=== PATIENT | female | born 1985 | race African-American/Black ===

== ENCOUNTER 2020-09-12 11:27 | Inpatient (IN) | payer OTHER ==
[~2020-09-12] VITALS: Ht 167.6 cm; Wt 82.1 kg
--- NOTE | 2020-09-12 11:50 | PHYS DOC ---
Past Medical History Past Surgical History: (X4) General Adult HPI: HPI: Patient is a 35-year-old female presenting via EMS for pelvic fracture. She was seen 48 hours ago at outside facility by myself at [facility]. She was riding a horse and got bucked off of it prompting her to come into the ER for evaluation. Comprehensive ER work-up was concerning for an acute nondisplaced right intra-articular distal radius fracture which was splinted in addition to stable right superior and inferior pubic rami fractures and a nondisplaced frac ture of the right sacral ala. [facility] orthopedic group consulted and case reviewed, she was a nonsurgical candidate. Nonetheless, orthopedic surgeon and I questioned patient's ability to be discharged home given the fact that she cannot operate crutches with splinted right arm and that she has several young children. I recommended hospital transfer to [facility] for pain control and physical therapy but patient deferred. She requested trial of discharging home with pain medication. She was sent home with short-term dose of Percocet 5 that she reports helps her pain when at rest but she has been unable to transfer even with assistance due to excessive uncontrolled pain. Patient's inability to care for herself concerned her and family and so she called EMS for transport to our facility. She is otherwise healthy, no known medical diagnoses, no consistent medications on a daily basis. She denies any falls or further trauma while at home, no changes in motor or sensory or neurologic function, no bladder or bowel incontinence Review of Systems: Review of Systems: Fourteen body systems of review of systems have been reviewed. See HPI for pertinent positives and negative responses, other acevedo all other systems are negative, non-pertinent or non-contributory Heart Score: C/O Chest Pain: No Risk Factors: Risk Factors: DM, Current or recent (<one month) smoker, HTN, HLP, family history of CAD, obesity. Risk Scores: Score 0 - 3: 2.5% MACE over next 6 weeks - Discharge Home Score 4 - 6: 20.3% MACE over next 6 weeks - Admit for Clinical Observation Score 7 - 10: 72.7% MACE over next 6 weeks - Early Invasive Strategies Physical Exam: PE: Constitutional: Well developed, well nourished, age appropriate in appearance and in no acute distress when not moving HENT: Normocephalic, atraumatic, bilateral external ears normal, oropharynx moist, no oral exudates, nose normal. Eyes: PERRLA, EOMI, conjunctiva normal, no discharge. Neck: Normal range of motion, no tenderness, supple, no stridor. Cardiovascular: Heart rate regular, sinus rhythm, no murmurs rubs or gallops Lungs & Thorax: Bilateral breath sounds clear to auscultation Abdomen: Bowel sounds normal, soft, no tenderness, no masses, no pulsatile masses. Nonsurgical abdomen, no peritoneal signs Skin: Warm, dry, no erythema, no rash. Back: No tenderness, no CVA tenderness. Extremities: Tenderness present to right pubic ramus at site of known stable fracture, no cyanosis, no clubbing, ROM intact, no edema. Able to move all x4 extremities on command, cap refill less than 3 seconds in all distal digits Neurologic: Alert and oriented X 3, no saddle anesthesia, normal motor & sensory function to all x4 extremities, no focal deficits noted. Psychologic: Anxious affect and mood EKG: EKG: [] Radiology/Procedures: Radiology/Procedures: [] Course & Med Decision Making: Course & Med Decision Making ABCs unremarkable. HPI, physical examination and review of outside [facility] ER visit reviewed, all nonconcerning for any emergent and/or surgical issues. With that said, patient unable to safely ambulate and care for self at home. Does not have regular care at home to assist through personal deficits. Unsafe to disposition home; at minimum plan admission for home safety evaluation, social and physical therapy evaluations I contacted hospitalist and discussed case, they accepted patient for admission. I updated patient on proposed plan for hospital admission and she was amenable. All questions and concerns addressed prior to hospital admission Dragon Disclaimer: Dragon Disclaimer: This electronic medical record was generated, in whole or in part, using a voice recognition dictation system. Departure Departure Impression: Primary Impression: Closed fracture of right superior pubic ramus Additional Impressions: Closed fracture of right inferior pubic ramus Closed fracture of right distal radius Nondisplaced zone I fracture of sacrum Disposition: 09 ADMITTED INPATIENT Admitting Physician: TARI (dr [email or web address]) Referrals: VALARIE TERAN MD (PCP) AVERY FERNANDEZ DO Sep 12, 2020 11:50
--- NOTE | 2020-09-12 11:51 | PDOC1 ---
History and Physical Date of Admission Date of Admission DATE: 09/12/20 TIME: 11:50 Identification/Chief Complaint Chief Complaint Hip pain Source Source: Chart review, Patient History of Present Illness History of Present Illness Patient is a 35-year-old female with past medical history recent pelvic fracture, who presents to the ER with complaint of continued pain and near syncopal event. She was seen at [facility] ER 2 days ago for initial fall from a horse with right hip injury. Comprehensive ER work-up at that time positive for an acute nondisplaced right intra-articular distal radius fracture, right superior and inferior pubic rami fractures, and a nondisplaced fracture of the right sacral ala. She was initially recommended admission at that time for pain management and physical therapy, however patient refused and opted instead to discharge home with family care. She states that earlier this morning she stood up and became lightheaded and had a near syncopal event. Patient states she did not lose consciousness, fall, or obtain any new injuries. She is concerned about her ability to care for herself at home. Will admit patient for further medical management. Past Medical History Past Medical History Superior and inferior pubic rami fractures right, nondisplaced fracture right sacral ala Past Surgical History Past Surgical History section x4, tubal ligation, tonsillectomy, hernia repair Family History Family History Denies significant family history Social History Smoke: No ALCOHOL: none Drugs: None Allergies Allergies: Coded Allergies: No Known Drug Allergies (Unverified , 09/12/20) ROS Review of System GENERAL: No history of weight change, weakness or fevers. SKIN: No bruising, hair changes or rashes. EYES: No blurred, double or loss of vision. NOSE AND THROAT: No history of nosebleeds, hoarseness or sore throat. HEART: Near syncope. Denies chest pain, denies palpitations. LUNGS: Denies cough, hemoptysis, wheezing or shortness of breath. GASTROINTESTINAL: Denies nausea, vomiting, abdominal pain. GENITOURINARY: Denies dysuria, frequency, urgency, hematuria. NEUROLOGIC: Denies history of numbness, tingling, tremor or weakness. PSYCHIATRIC: Denies anxiety, denies depression. ENDOCRINE: No history of heat or cold intolerance, polyuria or polydipsia. EXTREMITIES: Right hip pain, with associated right hip weakness and pain with walking. Physical Exam Physical Exam General: Alert, Oriented X3, Cooperative, mild distress HEENT: PERRLA, EOMI Lungs: Clear to auscultation, Normal air movement Heart: RRR, no murmurs Cardiovascular: S1, S2 Abdomen: Normal bowel sounds, Soft, No tenderness Extremities: Right upper extremity with cast in place, clean/dry/intact. No clubbing, No cyanosis Skin: No rashes, No significant lesion Neuro: Normal speech, Normal tone, Sensation intact Psych/Mental Status: Mental status NL, Mood NL Vitals Vitals Vital Signs Date Time Temp Pulse Resp B/P (MAP) Pulse Ox O2 Delivery O2 Flow Rate FiO2 09/12/20 11:34 98.4 68 16 98 Room Air 98.4 Images Images Radiology/Procedures XR HAND_LEFT 3 VIEWS History: Reason: LEFT THUMB PAIN, FOOSH / Spl. Instructions: / History: Technique: 3 views left hand Comparison: None. Findings: No dislocation. No acute fracture. Shortened fourth and fifth metacarpals. Impression: 1. No acute osseous abnormality. 2. Shortened fourth and fifth metacarpals. Differential considerations include metabolic and congenital etiologies. Electronically signed by: Bill Sarabia DO (09/10/2020 3:12 PM) [facility]ITAL[facility] IncMALINDA ////////////////// XR RT WRIST 3VIEWS History: Reason: RT SNUFFBOX PAIN / Spl. Instructions: / History: Technique: 3 views right wrist Comparison: None. Findings: Acute nondisplaced intra-articular distal radial fracture. No dislocation. There is adjacent soft tissue swelling. Impression: 1. Acute nondisplaced right intra-articular distal radius fracture. Electronically signed by: Bill Sarabia DO (09/10/2020 3:14 PM) [facility] ////////////// XR BILATERAL HIP (WITH OR WITHOUT PELVIS) 2 VIEWS_RIGHT History: Reason: FALL OFF HORSE, RIGHT HIP PAIN / Spl. Instructions: / History: Technique: AP view of the pelvis and additional views of the right hip. Comparison: None. Findings: Acute mildly displaced superior and inferior pubic rami fractures. No dislocation of the hips. Possible nondisplaced right sacral alar fracture although not well characterized on the current examination. Impression: 1. Acute mildly displaced right superior and inferior pubic ramus fractures. 2. Possible nondisplaced right sacral alar fracture. Electronically signed by: Bill Sarabia DO (09/10/2020 3:18 PM) [facility] ///////////// Single view chest dated 09/10/2020 3:58 PM: COMPARISON: None Clinical Indication: Pain after fall. Findings: Single upright portable exam of the chest was performed. Heart size and mediastinal contours are within normal limits. Lungs are clear. No consolidation or pleural effusion. No pneumothorax. IMPRESSION: No acute radiographic abnormality. Electronically signed by: Nathan Fernandez MD (09/10/2020 3:59 PM) [id number] /////////////// CT abdomen pelvis with contrast. HISTORY: Right pelvic fractures. CT abdomen pelvis was done using 74 mL of Omnipaque 300 contrast. There is mild atelectasis in the lung bases without other infiltrates. Liver is normal in ap pearance. There is no calcified gallstone. Spleen is unremarkable. Pancreas and adrenal glands are unremarkable. There is no mass or hydronephrosis in the kidneys. There is scarring and decreased size of the right kidney compared to the left side. There is no small bowel obstruction. Appendix is normal. Ovaries are unremarkable. There is central mass or endometrial thickening in the uterus. Bladder is almost empty but otherwise unremarkable. There is no significant pelvic hematoma or free fluid in the pelvis. There is buckling of the sacral ala on the right side consistent with a nondisplaced sacral fracture. There are superior and inferior right pubic rami fractures. IMPRESSION: 1. Endometrial thickening versus central mass in the uterus. 2. Superior and inferior pubic rami fractures right. 3. Nondisplaced fracture right sacral ala. 4. No acute intra-abdominal injury noted. 5. Scarring and decreased size of the right kidney compared to the left side. VTE Prophylaxis Ordered VTE Prophylaxis Devices: Yes VTE Pharmacological Prophylaxi: No Assessment/Plan Assessment/Plan Intractable hip pain Superior and inferior pubic rami fractures right Nondisplaced fracture right sacral ala Physical debility Plan: Will Provide pain management and muscle relaxers as needed PT/OT Resume home medications FEN - Regular diet PPX - SCDs FULL CODE Dispo - inpatient at least 2 midnights for above with plan for skilled rehab Justifications for Admission Other Justification EFREN FOLEY MD Sep 12, 2020 11:51
[2020-09-12] MEDS ORDERED: fentaNYL PF VIAL 100 MCG/2 ML VIAL IVP ONE (12:00)
[2020-09-12] MEDS ORDERED: MAG HYDROX/ALUMINUM HYD/SIMETH 30 ML ORAL.SUSP PO PRN (12:15)
[2020-09-12] MEDS ORDERED: ONDANSETRON PF 4 MG/2 ML VIAL. IVP PRN (12:15)
[2020-09-12] MEDS ORDERED: MAGNESIUM HYDROXIDE 2,400 MG/30 ML ORAL.SUSP. PO PRN (12:15)
[2020-09-12] MEDS ORDERED: ACETAMINOPHEN 325 MG TABLET. PO PRN (12:15)
[2020-09-12] MEDS ORDERED: HYDROcodone/APAP 5/325MG 1 TAB TABLET PO PRN ×2 (12:15)
[2020-09-12] MEDS ORDERED: IBUPROFEN 400 MG TABLET. PO PRN (12:15)
[2020-09-12] MEDS ORDERED: CALCIUM CARBONATE 500 MG TAB.CHEW PO PRN (12:15)
[2020-09-12] MEDS ORDERED: oxyCODONE/APAP 5/325 1 TAB TABLET PO PRN (12:15)
[2020-09-12] MEDS ORDERED: ZOLPIDEM 5 MG TABLET. PO PRN (12:15)
[2020-09-12 12:45] VITALS: BP 138/65
[2020-09-12 13:24] VITALS: BP 138/65
[2020-09-12] MEDS: DOCUSATE SODIUM 100 MG CAPSULE. PO SCH ×2 (14:41→20:31)
[2020-09-12] MEDS: tiZANidine 4 MG TABLET. PO PRN ×2 (14:41→22:50)
[2020-09-12 14:57] LABS: BILIRUBIN,URINE NEGATIVE (NEG); CLARITY,URINE CLEAR; COLOR,URINE YELLOW; NITRITE,URINE POSITIVE (NEG); PROTEIN,URINE NEGATIVE (NEG-TRACE); UROBILINOGEN,URINE 0.2 mg/dL (0.2 mg/dL)
[2020-09-12 15:00] VITALS: BP 136/86
[2020-09-12 15:04] LABS: HYALINE CASTS, URINE FEW /HPF
[2020-09-12 15:05] LABS: BACTERIA,URINE MANY /HPF (0-FEW); RBC,URINE 0 /HPF (0-2); WBC,URINE >40 /HPF (0-4)
[2020-09-12] MEDS ORDERED: CHOL5000 PO (17:10)
[2020-09-12 19:00] VITALS: BP 134/89
[2020-09-12] MEDS: oxyCODONE/APAP 5/325 1 TAB TABLET PO PRN (19:31)
[2020-09-12 23:00] VITALS: BP 127/79
[2020-09-13] VITALS (7 sets, daily range): BP systolic 114–142; BP diastolic 60–84
[2020-09-13] MEDS: oxyCODONE/APAP 5/325 1 TAB TABLET PO PRN ×2 (02:01→06:34)
[2020-09-13 06:07] LABS: HEMATOCRIT 36.5 % (36.0-47.0); HEMOGLOBIN 12.4 g/dL (12.0-15.5); RED BLOOD COUNT 4.16 x10^6/uL (3.50-5.40); RED CELL DISTRIBUTION WIDTH 12.5 % (11.5-14.5); WHITE BLOOD COUNT 5.6 x10^3/uL (4.0-11.0)
[2020-09-13 06:14] LABS: CALCIUM 8.6 mg/dL (8.5-10.1); GFR 76.8; POTASSIUM 3.3 mmol/L (3.5-5.1)
[2020-09-13 06:24] LABS: ALBUMIN 3.5 g/dL (3.4-5.0); TOTAL BILIRUBIN 0.5 mg/dL (0.2-1.0); TOTAL PROTEIN 7.1 g/dL (6.4-8.2)
[2020-09-13] MEDS: tiZANidine 4 MG TABLET. PO PRN ×2 (08:14→16:18)
[2020-09-13] MEDS: DOCUSATE SODIUM 100 MG CAPSULE. PO SCH ×2 (08:14→21:00)
--- NOTE | 2020-09-13 08:31 | PDOC ---
[employer] PROGRESS NOTE Date of Service DOS: DATE: 09/13/20 TIME: 08:30 Chief Complaint Chief Complaint Intractable hip pain Superior and inferior pubic rami fractures right Nondisplaced fracture right sacral ala Physical debility Plan: Will Provide pain management and muscle relaxers as needed PT/OT Resume home medications FEN - Regular diet PPX - SCDs FULL CODE Dispo - inpatient at least 2 midnights for above with plan for skilled rehab History of Present Illness History of Present Illness Patient is a 35-year-old female with past medical history recent pelvic fracture, who presents to the ER with complaint of continued pain and near syncopal event. She was seen at [facility] ER 2 days ago for initial fall from a horse with right hip injury. Comprehensive ER work-up at that time positive for an acute nondisplaced right intra-articular distal radius fracture, right superior and inferior pubic rami fractures, and a nondisplaced fracture of the right sacral ala. She was initially recommended admission at that time for pain management and physical therapy, however patient refused and opted instead to discharge home with family care. She states that earlier this morning she stood up and became lightheaded and had a near syncopal event. Patient states she did not lose consciousness, fall, or obtain any new injuries. She is concerned about her ability to care for herself at home. Will admit patient for further medical management. 09/13/2020: Afebrile. Right hip pain well controlled. Seen working with physical therapy. I anticipate she would benefit from acute rehab; discussed with PT who agrees. Vitals/I&O Vitals/I&O: Vital Signs Date Time Temp Pulse Resp B/P (MAP) Pulse Ox O2 Delivery O2 Flow Rate FiO2 09/13/20 07:00 98.1 61 18 128/84 (99) 96 Room Air 98.1 I & O 09/12/20 09/12/20 09/13/20 15:00 23:00 07:00 Intake Total 1000 ml Balance 1000 ml Physical Exam General: Alert, Oriented X3, Cooperative, mild distress Heart: Regular rate Lungs: Clear Abdomen: Soft, No tenderness Extremities: No clubbing, No cyanosis Skin: No rashes, No breakdown Labs Labs: Laboratory Tests Test 09/12/20 14:50 09/13/20 05:00 Urine Collection Type Unknown Urine Color Yellow Urine Clarity Clear Urine pH 6.0 (<5.0-8.0) Urine Specific [place] 1.015 (1.000-1.030) Urine Protein Negative mg/dL (NEG-TRACE) Urine Glucose (UA) Negative mg/dL (NEG) Urine Ketones (Stick) 15 mg/dL (NEG) Urine Blood Small (NEG) Urine Nitrite Positive (NEG) Urine Bilirubin Negative (NEG) Urine Urobilinogen Dipstick 0.2 mg/dL (0.2 mg/dL) Urine Leukocyte Esterase Large (NEG) Urine RBC 0 /HPF (0-2) Urine WBC >40 /HPF (0-4) Urine Squamous Epithelial Cells Mod /LPF Urine Bacteria Many /HPF (0-FEW) Urine Hyaline Casts Few /HPF Urine Mucus Marked /LPF White Blood Count 5.6 x10^3/uL (4.0-11.0) Red Blood Count 4.16 x10^6/uL (3.50-5.40) Hemoglobin 12.4 g/dL (12.0-15.5) Hematocrit 36.5 % (36.0-47.0) Mean Corpuscular Volume 88 fL (79-100) Mean Corpuscular Hemoglobin 30 pg (25-35) Mean Corpuscular Hemoglobin Concent 34 g/dL (31-37) Red Cell Distribution Width 12.5 % (11.5-14.5) Platelet Count 148 x10^3/uL (140-400) Sodium Level 141 mmol/L (136-145) Potassium Level 3.3 mmol/L (3.5-5.1) Chloride Level 105 mmol/L (98-107) Carbon Dioxide Level 26 mmol/L (21-32) Anion Gap 10 (6-14) Blood Urea Nitrogen 12 mg/dL (7-20) Creatinine 1.0 mg/dL (0.6-1.0) Estimated GFR (Cockcroft-Gault) 76.8 BUN/Creatinine Ratio 12 (6-20) Glucose Level 91 mg/dL (70-99) Calcium Level 8.6 mg/dL (8.5-10.1) Total Bilirubin 0.5 mg/dL (0.2-1.0) Aspartate Amino Transf (AST/SGOT) 15 U/L (15-37) Alanine Aminotransferase (ALT/SGPT) 14 U/L (14-59) Alkaline Phosphatase 59 U/L (46-116) Total Protein 7.1 g/dL (6.4-8.2) Albumin 3.5 g/dL (3.4-5.0) Albumin/Globulin Ratio 1.0 (1.0-1.7) Assessment and Plan Assessmemt and Plan Problems Medical Problems: (1) Closed fracture of right distal radius Status: Acute (2) Closed fracture of right inferior pubic ramus Status: Acute (3) Closed fracture of right superior pubic ramus Status: Acute (4) Nondisplaced zone I fracture of sacrum Status: Acute Comment Review of Relevant I have reviewed the following items gayatri (where applicable) has been applied. Medications: Current Medications Medications (Trade) Dose Ordered Sig/Viola Route PRN Reason Start Time Stop Time Status Last Admin Dose Admin Fentanyl Citrate (Fentanyl 2ml Vial) 50 mcg 1X ONCE IVP 09/12/20 12:00 09/12/20 12:01 DC 09/12/20 12:09 Oxycodone/ Acetaminophen (Percocet 5/325) 1 tab PRN Q4HRS PRN PO MILD PAIN, 2ND CHOICE 09/12/20 12:15 09/13/20 06:34 Docusate Sodium (Colace) 100 mg BID PO 09/12/20 13:00 09/13/20 08:14 Tizanidine HCl (Zanaflex) 4 mg PRN Q8HRS PRN PO MUSCLE SPASMS 09/12/20 12:30 09/13/20 08:14 Justifications for Admission Other Justification Pain management, nondisplaced right hip fracture EFREN FOLEY MD Sep 13, 2020 08:31
[2020-09-13] MEDS ORDERED: MORPHINE SULFATE 4 MG/ML INJ. IV PRN (13:15)
[2020-09-13] MEDS ORDERED: ALBUTEROL SULFATE 2.5 MG/3 ML NEBU. NEB PRN (13:45)
--- NOTE | 2020-09-13 13:50 | EKG ---
[facility] [address] [place] [address] Test Date: 2020-09-13 Test Time: 13:49:04 Pat Name: GISELA HAYES Department: Room: [facility] Gender: F Clinical Researcher: BRYAN : 1985 Requested By: EFREN FOLEY Order Number: [id number] Reading MD: Measurements Intervals [place] Rate: 71 P: 49 NE: 148 QRS: 62 QRSD: 90 T: 24 QT: 404 QTc: 439 Interpretive Statements SINUS RHYTHM NO SPECIFIC ECG ABNORMALITIES RI6.01 No previous ECG available for comparison
--- NOTE | 2020-09-13 15:31 | NUR ---
SW following. Discussed with RN, pt from home with , room air, regular diet. Therapy recommending acute rehab. SCOTT met with pt and pt's at bedside. Pt agreeable to an acute rehab facility but wants to know which is in network with her insurance. Pt okay with SCOTT sending facesheet to [facility] [place], [place]. [facility] acute rehab does not have beds at this time. Awaiting confirmation of insurance. SCOTT will continue to follow.
[2020-09-14] MEDS: tiZANidine 4 MG TABLET. PO PRN ×2 (00:23→08:07)
[2020-09-14 03:00] VITALS: BP 91/42
[2020-09-14 07:00] VITALS: BP 123/71
[2020-09-14] MEDS: DOCUSATE SODIUM 100 MG CAPSULE. PO SCH (08:07)
--- NOTE | 2020-09-14 08:15 | PDOC ---
[employer] PROGRESS NOTE Date of Service DOS: DATE: 09/14/20 TIME: 08:10 Chief Complaint Chief Complaint Intractable hip pain Superior and inferior pubic rami fractures right Nondisplaced fracture right sacral ala Physical debility Plan: Will Provide pain management and muscle relaxers as needed PT/OT Resume home medications FEN - Regular diet PPX - SCDs FULL CODE Dispo - inpatient at least 2 midnights for above with plan for skilled rehab History of Present Illness History of Present Illness Patient is a 35-year-old female with past medical history recent pelvic fracture, who presents to the ER with complaint of continued pain and near syncopal event. She was seen at [facility] ER 2 days ago for initial fall from a horse with right hip injury. Comprehensive ER work-up at that time positive for an acute nondisplaced right intra-articular distal radius fracture, right superior and inferior pubic rami fractures, and a nondisplaced fracture of the right sacral ala. She was initially recommended admission at that time for pain management and physical therapy, however patient refused and opted instead to discharge home with family care. She states that earlier this morning she stood up and became lightheaded and had a near syncopal event. Patient states she did not lose consciousness, fall, or obtain any new injuries. She is concerned about her ability to care for herself at home. Will admit patient for further medical management. 09/13/2020: Afebrile. Right hip pain well controlled. Seen working with physical therapy. I anticipate she would benefit from acute rehab; discussed with PT who agrees. 09/14/2020: Afebrile. Patient did report some chest pain yesterday; EKG was obtained and normal and troponin <0.017. She participated with PT yesterday and recommended acute rehab with rolling walker as needed. Per social services designee, referrals have been sent to rehab facilities in the area and awaiting confirm ation. Vitals/I&O Vitals/I&O: Vital Signs Date Time Temp Pulse Resp B/P (MAP) Pulse Ox O2 Delivery O2 Flow Rate FiO2 09/14/20 03:00 97.5 71 18 91/42 (58) 99 Room Air 97.5 Physical Exam General: Alert, Oriented X3, Cooperative, mild distress Heart: Regular rate Lungs: Clear Abdomen: Soft, No tenderness Extremities: No clubbing, No cyanosis Skin: No rashes, No breakdown Labs Labs: Laboratory Tests Test 09/13/20 15:19 Troponin I Quantitative < 0.017 ng/mL (0.000-0.055) Assessment and Plan Assessmemt and Plan Problems Medical Problems: (1) Closed fracture of right distal radius Status: Acute (2) Closed fracture of right inferior pubic ramus Status: Acute (3) Closed fracture of right superior pubic ramus Status: Acute (4) Nondisplaced zone I fracture of sacrum Status: Acute Comment Review of Relevant I have reviewed the following items gayatri (where applicable) has been applied. Medications: Current Medications Medications (Trade) Dose Ordered Sig/Viola Route PRN Reason Start Time Stop Time Status Last Admin Dose Admin Albuterol Sulfate (Ventolin Neb Soln) 2.5 mg PRN Q6HRS PRN NEB SHORTNESS OF BREATH 09/13/20 13:45 09/13/20 13:59 Justifications for Admission Other Justification Pain management, nondisplaced right hip fracture EFREN FOLEY MD Sep 14, 2020 08:15
--- NOTE | 2020-09-14 10:15 | NUR ---
SW following. Discussed with RN, [facility] are in network with pt's insurance. Pt agreeable to rest of referral being sent to [facility]. Referral faxed, awaiting acceptance decision. COVID still pending for placement. Choice of vendor form completed yesterday. SCOTT will continue to follow.
[2020-09-14] MEDS ORDERED: BACLOFEN 10 MG TABLET. PO SCH (10:30)
[2020-09-14 11:00] VITALS: BP 116/68
--- NOTE | 2020-09-14 13:00 | NUR ---
Patient left AMA. Patient did not want to move to 6S after positive COVID result. Patient stated she was ready to go home instead. Patient verbalized understanding of leaving AMA. Patient signed AMA paper. Security and RN walked patient and spouse to vehicle. Patient got into vehicle and spouse driving. and nursing pest management supervisor notified of AMA.
--- NOTE | 2020-09-14 13:44 | PDOC3 ---
Discharge Summary Visit Information Date of Admission: Sep 12, 2020 Date of Discharge: Sep 14, 2020 Final Diagnosis Problems Medical Problems: (1) Closed fracture of right distal radius Status: Acute (2) Closed fracture of right inferior pubic ramus Status: Acute (3) Closed fracture of right superior pubic ramus Status: Acute (4) Nondisplaced zone I fracture of sacrum Status: Acute Brief Hospital Course Allergies Allergies Coded Allergies Type Severity Reaction Last Updated Verified No Known Drug Allergies 09/12/20 No Vital Signs Vital Signs Date Time Temp Pulse Resp B/P (MAP) Pulse Ox O2 Delivery O2 Flow Rate FiO2 09/14/20 11:00 97.8 62 16 116/68 (84) 97 Room Air 97.8 Lab Results Laboratory Tests Test 09/12/20 14:50 09/13/20 05:00 09/13/20 14:51 09/13/20 15:19 Urine Collection Type Unknown Urine Color Yellow Urine Clarity Clear Urine pH 6.0 (<5.0-8.0) Urine Specific [place] 1.015 (1.000-1.030) Urine Protein Negative mg/dL (NEG-TRACE) Urine Glucose (UA) Negative mg/dL (NEG) Urine Ketones (Stick) 15 mg/dL (NEG) Urine Blood Small (NEG) Urine Nitrite Positive (NEG) Urine Bilirubin Negative (NEG) Urine Urobilinogen Dipstick 0.2 mg/dL (0.2 mg/dL) Urine Leukocyte Esterase Large (NEG) Urine RBC 0 /HPF (0-2) Urine WBC >40 /HPF (0-4) Urine Squamous Epithelial Cells Mod /LPF Urine Bacteria Many /HPF (0-FEW) Urine Hyaline Casts Few /HPF Urine Mucus Marked /LPF White Blood Count 5.6 x10^3/uL (4.0-11.0) Red Blood Count 4.16 x10^6/uL (3.50-5.40) Hemoglobin 12.4 g/dL (12.0-15.5) Hematocrit 36.5 % (36.0-47.0) Mean Corpuscular Volume 88 fL (79-100) Mean Corpuscular Hemoglobin 30 pg (25-35) Mean Corpuscular Hemoglobin Concent 34 g/dL (31-37) Red Cell Distribution Width 12.5 % (11.5-14.5) Platelet Count 148 x10^3/uL (140-400) Sodium Level 141 mmol/L (136-145) Potassium Level 3.3 mmol/L (3.5-5.1) Chloride Level 105 mmol/L (98-107) Carbon Dioxide Level 26 mmol/L (21-32) Anion Gap 10 (6-14) Blood Urea Nitrogen 12 mg/dL (7-20) Creatinine 1.0 mg/dL (0.6-1.0) Estimated GFR (Cockcroft-Gault) 76.8 BUN/Creatinine Ratio 12 (6-20) Glucose Level 91 mg/dL (70-99) Calcium Level 8.6 mg/dL (8.5-10.1) Total Bilirubin 0.5 mg/dL (0.2-1.0) Aspartate Amino Transf (AST/SGOT) 15 U/L (15-37) Alanine Aminotransferase (ALT/SGPT) 14 U/L (14-59) Alkaline Phosphatase 59 U/L (46-116) Total Protein 7.1 g/dL (6.4-8.2) Albumin 3.5 g/dL (3.4-5.0) Albumin/Globulin Ratio 1.0 (1.0-1.7) SARS-CoV-2 RNA (HÉCTOR) Positive (Negative) Troponin I Quantitative < 0.017 ng/mL (0.000-0.055) Laboratory Tests Test 09/13/20 14:51 09/13/20 15:19 SARS-CoV-2 RNA (HÉCTOR) Positive (Negative) Troponin I Quantitative < 0.017 ng/mL (0.000-0.055) Brief Hospital Course Ms. Hitchcock is a 35 old female who presented with intractable hip pain, superior and inferior pubic rami fractures right, nondisplaced fracture right sacral ala, and physical debility. She was treated with symptomatic management. She worked with PT/OT and recommended SNU. She was swabbed for COVID-19 in anticipation of rehab placement, which returned positive. She was asymptomatic, breathing on room air. When attempts were made to place patient in isolation, she refused and left AGAINST MEDICAL ADVICE. She was A&O x 3, and risks of leaving AMA were explained to patient, including worsening pain and injury. Discharge Information Condition at Discharge: Stable Disposition/Orders: Other (Left AMA) Scheduled Cholecalciferol (Vitamin D3) (Vitamin D3 ) 125 Mcg Capsule, 10,000 UNITS PO DAILY for SUPPLEMENT, (Reported) 5,000 UNITS = 125 MCG Entered as Reported by: HOMERO KATZ on 09/12/201709 Last Action: New Order on 09/12/201709 by HOMERO KATZ Justicifation of Admission Dx: Justifications for Admission: Justification of Admission Dx: Yes EFREN FOLEY MD Sep 14, 2020 13:44
== END 2020-09-14 13:00 | disposition left against medical advice (07) | DRG 552 ==
LOC: ER 11:27 → 4 NORTH 11:37
PROVIDERS: ADMIT Family Medicine; ATTEND Family Medicine
DX: S32.110A Nondisplaced Zone I fracture of sacrum, initial encounter for closed fracture (principal); S32.591A Other specified fracture of right pubis, initial encounter for closed fracture; S52.571A Other intraarticular fracture of lower end of right radius, initial encounter for closed fracture; Z78.9 Other specified health status; Z98.891 History of uterine scar from previous surgery; Z20.822 Contact with and (suspected) exposure to COVID-19; Z53.29 Procedure and treatment not carried out because of patient's decision for other reasons; W01.0XXA Fall on same level from slipping, tripping and stumbling without subsequent striking against object, initial encounter; Y93.89 Activity, other specified; Y92.89 Other specified places as the place of occurrence of the external cause; Y99.8 Other external cause status
CPT/HCPCS: 36415; 80053; 81001; 84484; 85027; 87077; 87086; 87186; 93005; 94640; 94760; 96374; J3010; U0003; U0005; 97110-GP; 97530-GO; 97530-GP; 99285-25; G0378; J7613

== ENCOUNTER → 2020-12-30 | Outpatient (CLI) | payer OTHER ==
[~2020-12-30] MED LIST: CHOL5000 PO
[2020-12-30 13:21] LABS: BASO % 1 % (0-3); EOS # 0.2 x10^3/uL (0.0-0.7); EOS % 3 % (0-3); HEMATOCRIT 39.3 % (36.0-47.0); HEMOGLOBIN 13.1 g/dL (12.0-15.5); LYMPH # 1.5 x10^3/uL (1.0-4.8); LYMPH % 25 % (24-48); MEAN CORPUSCULAR HEMOGLOBIN 29 pg (25-35); MEAN CORPUSCULAR HGB CONC 33 g/dL (31-37); MEAN CORPUSCULAR VOLUME 87 fL (79-100); MONO # 0.4 x10^3/uL (0.0-1.1); MONO % 7 % (0-9); NEUT # 3.9 x10^3/uL (1.8-7.7); NEUT % 65 % (31-73); PLATELET COUNT 233 x10^3/uL (140-400); RED CELL DISTRIBUTION WIDTH 12.9 % (11.5-14.5); WHITE BLOOD COUNT 5.9 x10^3/uL (4.0-11.0)
[2020-12-30 13:29] LABS: BILIRUBIN,URINE NEGATIVE (NEG); CLARITY,URINE CLEAR; COLOR,URINE YELLOW; NITRITE,URINE POSITIVE (NEG); PH,URINE 6.5 (<5.0-8.0); PROTEIN,URINE NEGATIVE (NEG-TRACE); UROBILINOGEN,URINE 0.2 mg/dL (0.2 mg/dL)
[2020-12-30 13:36] LABS: ALBUMIN 3.9 g/dL (3.4-5.0); ALBUMIN/GLOBULIN RATIO 0.9 (1.0-1.7); CALCIUM 8.8 mg/dL (8.5-10.1); CREATININE 1.1 mg/dL (0.6-1.0); GFR 68.8; POTASSIUM 3.8 mmol/L (3.5-5.1); TOTAL BILIRUBIN 0.3 mg/dL (0.2-1.0); TOTAL PROTEIN 8.1 g/dL (6.4-8.2)
[2020-12-30 13:57] LABS: BACTERIA,URINE MANY /HPF (0-FEW)
== END ==
LOC: SURGPAT 12:33
PROVIDERS: ATTEND Obstetrics & Gynecology
DX: Z01.818 Encounter for other preprocedural examination (principal)
CPT/HCPCS: 36415; 80053; 81001; 85025; 87077; 87086; 87186

== ENCOUNTER → 2021-01-02 | Outpatient (CLI) | payer OTHER | LOC: LAB 12:13 | PROVIDERS: ATTEND Obstetrics & Gynecology | DX: Z01.812 Encounter for preprocedural laboratory examination (principal); Z20.822 Contact with and (suspected) exposure to COVID-19 | CPT/HCPCS: U0003; U0005 ==

== ENCOUNTER 2021-01-04 05:58 | Observation (INO) | payer OTHER ==
[~2021-01-04] VITALS: Ht 167.6 cm; Wt 79.0 kg
[2021-01-04] VITALS (15 sets, daily range): BP systolic 134–166; BP diastolic 79–107
[2021-01-04] MEDS ORDERED: fentaNYL PF VIAL 100 MCG/2 ML VIAL IVP PRN ×2 (06:00)
[2021-01-04] MEDS ORDERED: ceFAZolin SODIUM IV Push 1 GM VIAL. IVP PRN (06:00)
[2021-01-04] MEDS ORDERED: HYDROmorphone 2 MG/ML VIAL IVP PRN (06:00)
[2021-01-04] MEDS ORDERED: PROCHLORPERAZINE 10 MG/2 ML VIAL. IVP PRN (06:00)
[2021-01-04] MEDS: IV RINGERS,LACTATED 1000ML 1,000 ML IV SCH ×2 (06:51→10:01)
[2021-01-04] MEDS ORDERED: INDIGOTINDISULFONATE SODIUM 40 MG/5 ML AMPUL. ONE (07:11)
[2021-01-04] MEDS ORDERED: BUPIVACAINE-EPI 0.25%-1:200000 MPF 30 ML VIAL. ONE (07:11)
[2021-01-04] MEDS ORDERED: ESTROGENS, CONJ VAGINAL CREAM 30GM TUBE. ONE (07:11)
[2021-01-04] MEDS ORDERED: ROCURONIUM 50 MG/5 ML VIAL. ONE (07:16)
[2021-01-04] MEDS ORDERED: DEXAMETHASONE SOD PHOS 4 MG/ML VIAL ONE (07:16)
[2021-01-04] MEDS ORDERED: LIDOCAINE 2% PF 5 ML VIAL. ONE (07:16)
[2021-01-04] MEDS ORDERED: ONDANSETRON PF 4 MG/2 ML VIAL. ONE (07:16)
[2021-01-04] MEDS ORDERED: PROPOFOL 10 MG/ML (20ML) VIAL. IV ONE (07:16)
[2021-01-04] MEDS ORDERED: fentaNYL PF VIAL 100 MCG/2 ML VIAL ONE ×2 (07:16→08:11)
[2021-01-04] MEDS ORDERED: MIDAZOLAM HCL/PF 2 MG/2 ML VIAL. ONE (07:16)
[2021-01-04] MEDS ORDERED: GLYCOPYRROLATE 1 MG/5 ML VIAL. ONE ×2 (08:01)
[2021-01-04] MEDS ORDERED: NEOSTIGMINE METHYLSULFATE 5 MG/5 ML SYRINGE. ONE (08:06)
[2021-01-04] MEDS ORDERED: ePHEDrine PF IN SALINE 50 MG/10 ML SYRINGE. IV ONE (08:14)
[2021-01-04] MEDS ORDERED: HYDROmorphone 2 MG/ML VIAL ONE (08:22)
[2021-01-04] MEDS ORDERED: SEVOFLURANE > 120 MINUTES. IH ONE (08:30)
[2021-01-04] MEDS ORDERED: ceFAZolin SODIUM IV Push 1 GM VIAL. IVP ONE (08:58)
[2021-01-04] MEDS ORDERED: KETOROLAC 30 MG/ML VIAL. ONE (09:41)
[2021-01-04] MEDS ORDERED: diphenhydrAMINE 50 MG/ML VIAL IV PRN (09:45)
[2021-01-04] MEDS ORDERED: MORPHINE SULFATE 2 MG/ML INJ. IV PRN ×2 (09:45→21:00)
[2021-01-04] MEDS ORDERED: diphenhydrAMINE HCL 25 MG CAPSULE PO PRN (09:45)
[2021-01-04] MEDS ORDERED: CALCIUM CARBONATE 500 MG TAB.CHEW PO PRN (09:45)
[2021-01-04] MEDS ORDERED: 0.9 % SODIUM CHLORIDE 10 ML DISP.SYRIN. IV PRN (09:45)
[2021-01-04] MEDS ORDERED: MAG HYDROX/ALUMINUM HYD/SIMETH 30 ML ORAL.SUSP PO PRN (09:45)
[2021-01-04] MEDS ORDERED: HYDROcodone/APAP 5/325MG 1 TAB TABLET PO PRN (09:45)
[2021-01-04] MEDS ORDERED: ONDANSETRON PF 4 MG/2 ML VIAL. IV PRN (09:45)
[2021-01-04] MEDS ORDERED: LACTULOSE 20 GM/30 ML SOLUTION. PO PRN (09:45)
[2021-01-04] MEDS ORDERED: SIMETHICONE 80 MG TAB.CHEW PO PRN (09:45)
[2021-01-04] MEDS ORDERED: MAGNESIUM HYDROXIDE 2,400 MG/30 ML ORAL.SUSP. PO PRN (09:45)
[2021-01-04] MEDS ORDERED: NALOXONE 0.4 MG/ML VIAL. IV PRN (09:45)
[2021-01-04] MEDS ORDERED: ZOLPIDEM 5 MG TABLET. PO PRN (09:45)
[2021-01-04] MEDS ORDERED: IBUPROFEN 200 MG TABLET. PO PRN (09:45)
--- NOTE | 2021-01-04 09:58 | PDOC ---
BRIEF OPERATIVE NOTE Date: Jan 04, 2021 Pre-Op Diagnosis menorrhagia, dysmenorrhea, enlarged uterus Post-Op Diagnosis same plus mild adhesive disease Procedure Performed LAVH/bilateral salpingectomy/lysis of adhesions Surgeon Dr. Mitzy Hitchcock Upper Marker CALLIE Hurst Anesthesiologist Dr. Mcpherson Anesthesia Type: General Blood Loss 50cc IV Fluid 1L Urine Output 250cc clear via rodriguez Specimens Obtained cervix, uterus, bilateral tubes Findings enlarged boggy uterus, evidence of prior tubal ligation with tubes out from distal segments, omental adhesions to anterior abdomen and bladder adhesions from prior c/s Complications none Operative Note [id number] MITZY HITCHCOCK MD Jan 04, 2021 09:58
[2021-01-04] MEDS: MORPHINE SULFATE 2 MG/ML INJ. IVP PRN ×2 (10:36→10:46)
--- NOTE | 2021-01-04 11:14 | OP ---
DATE OF SURGERY: 01/04/2021 PREOPERATIVE DIAGNOSES: Menorrhagia, dysmenorrhea, and an enlarged fibroid uterus. POSTOPERATIVE DIAGNOSES: Menorrhagia, dysmenorrhea, and an enlarged fibroid uterus with mild adhesive disease. PROCEDURE: Laparoscopic-assisted vaginal hysterectomy, bilateral salpingectomy and lysis of adhesions. SURGEON: Mitzy Hitchcock MD. FELT FINISHING SUPERVISOR: CALLIE Saldaña. ANESTHESIOLOGIST: Dr. Mcpherson. ANESTHESIA: General. BLOOD LOSS: 50 mL URINE OUTPUT: 250 mL clear via Dixon catheter. IV FLUIDS: One liter of crystalloid. SPECIMENS: Cervix, uterus and bilateral tubes. FINDINGS: She has an enlarged boggy retroverted uterus. Evidence of prior tubal ligation with when the salpingectomy was done, the distal segments of the tube were passed off as separate sections and then omental adhesions to the anterior abdominal wall and bladder adhesions from her prior cesareans. Grossly normal right upper quadrant, grossly normal appendix, grossly normal bowel. COMPLICATIONS: None. DESCRIPTION OF PROCEDURE: This patient was taken to the operating room where general anesthesia was placed. The patient was placed in a dorsal lithotomy position in [facility]. The patient's abdomen and vagina were prepped and draped in the normal sterile fashion and a Dixon catheter was inserted under sterile technique. Upon my arrival, a timeout was performed. Once everyone agreed on the patient, the site, the procedure, the antibiotics, the procedure was initiated. A bivalve speculum was placed in the patient's vagina. A single-tooth tenaculum was used to grasp the anterior lip of the cervix. A 10 mL of 0.25% Marcaine with epinephrine was used to circumferentially inject around the cervix for both hemodissection and hemostatic purposes later. The Valtchev uterine manipulator was placed through the endocervical os, locked on the single tooth tenaculum and the bivalve speculum was then removed. Top gloves were discarded and changed. Attention was then turned to the abdomen where a small supraumbilical skin incision was made with the scalpel, a curved Aretha was used to dissect through the subcuticular layer to the fascia. The curved Aretha went immediately in, it was very thin. No good fascial layer was here and I did get the Visiport and direct abdominal placement was confirmed via the laparoscope with barely in a centimeter. Carbon dioxide gas was used to appropriately insufflate the abdominal cavity to maintain a pressure of 15 mmHg, overhead lights were dimmed and the patient was placed in Trendelenburg position. Right and left lower quadrant ports were placed after making sure there were no adhesions on the underneath side, there were not here, there were just omental once in the middle between the umbilicus and the uterus. Finding an area clear of any vasculature transilluminating the abdominal wall, making a small incision and placing in under direct visualization, 4-5 mL of air was placed in the trocar cuffs on these. Then the camera was moved laterally to look at the umbilical port. Once it was in and clear it was also insufflated with the 4-5 mL of air. At this point, the camera was placed backmidline. The left tube and ovary were elevated finding the ureter coursing low in the pelvis. The left ovary was normal. She wished to retain it so going above the ovary below the tube doing a salpingectomy it came off in a segment from the prior tubal and it was removed. Then, crossing the left uteroovarian pedicle and the left round ligament with the LigaSure, cauterizing and cutting the wholeway. This was done exactly the same on the right side, elevating the right tube and ovary finding the ureter and watching it peristalsed going low in the pelvis, staying above the ovary below the tube doing a salpingectomy, cauterizing and cutting with the LigaSure, removing that segment of tube and crossing the right uteroovarian pedicle and the right round ligament, cauterizing and cutting each step with the LigaSure. Once this was done, the uterus was pushed cephalad to the head of the bed. The bladder was elevated with the [place] and the monopolar hook was used to cauterize across and take down the bladder. It was a little bit higher, it had to be taken down, it did not want to peel easily from her 4 prior cesareans but it was easily taken down sharply, bluntly. I did not want to pull but sharply it was easily elevated and the monopolar hook was used and it was taken down. Once it was down, crossing contralaterally, hugging the uterus, going through the cardinal and broad ligaments on the left side down to the level of the uterosacral all the while making sure the bladder was down and then coming at it on the right side, getting the uterine vessels and then hugging posteriorly and making sure the cervix was bulging posteriorly and staying right on that cervix and getting through the cardinal and broad ligaments on this side as well. Once this was done, the uterus was completely free posteriorly, it was completely blanched. All instruments were removed and attention was turned vaginally. The patient was taken out of Trendelenburg, overhead lights were put back on. The legs were elevated. The single tooth and Valtchev were removed. A weighted speculum was placed in the patient's vagina. Thyroid Tosin clamps were placed on the anterior and posterior lips of the cervix respectively a scalpel was used to make a circumferential incision in the cervix. The posterior cul-de-sac was bulging and easily entered with curved Cornelius scissors and a #0 Vicryl stitch was used to secure the posterior peritoneum here to the vaginal cuff. It was tagged with a curved Aretha clamp and the needle was cut and passed off. The short weighted vaginal speculum was removed and replaced with the long weighted Nayeli speculum in the posterior cul-de-sac. At this point, the bladder flap was created sharply up above and an open Ray-Jaguar 4 x 4 was used to gently push up the anterior bladder peritoneum, it was entered on the patient's left side and the curved Armand was placed in here and the Ray-Jaguar was passed off. Curved Mayur clamps x 2 were placed on the uterosacral ligament where they were doubly clamped with curved Heaneys, cut with curved Cornelius scissors and suture ligated x 2 with 0 Vicryl. The first one was tied. The back instrument was removed. Second one was taken through the vaginal cuff and tagged with a straight Aretha clamp and the needle was cut and passed off. This side was completely free. The left side was completely free. Once the bladder was assured to be on the right side it was also doubly clamped with curved Heaneys, cut with curved Cornelius scissors, suture ligated x 2 with 0 Vicryl. A second one taken through the vaginal cuff, tagged with a straight Aretha clamp and needle was cut and passed off. The remaining pedicle on this side was delineated with the curved right angle Mixter. I made sure teasing it with Metzenbaum scissors and pushing up that all the bladder was easily up and it was just filmy and then cauterizing and cutting with the vaginal LigaSure, the remaining pedicle on this side and staying right on that cervix and uterus. Once this was done, the cervix and uterus were delivered in total and passed off for permanent pathology. The anterior bladder peritoneum was easily grasped with a long Allis. Sponge stick was used to examine the pedicles. Once they were assured to be dry, the long weighted Nayeli speculum was removed and replaced with the short weighted vaginal speculum. Again, sponge stick was used to ensure hemostasis. Once it was assured, 2-0 Vicryl was taken through the anterior bladder peritoneum, left uterosacral ligament, posterior peritoneum and right uterosacral ligament, thus closing the peritoneum in a pursestring like fashion. Once this was done, the right and left uterosacral tags were clipped. The cuff was closed in an anterior to posterior running locked fashion with a full length 2-0 Vicryl and tied to the posterior vaginal cuff tag. A sponge stick was used to examine the cuff. It was completely hemostatic, so at this point, all gloves were discarded and changed and attention was turned above. All sponge, lap and needle counts had been correct x 2 by OR personnel prior to going above. Once going above, she was placed back in Trendelenburg, overhead lights were resumed. Gas was placed back on and there was absolutely no bleeding. The right and left pericolic gutters were clear. The cuff was dry. Copious irrigation revealed hemostasis. Tisseel was placed over the cuff with excellent results. The 4-5 mL of air was taken out of the 3 trocars and the right and left lower quadrant ports were removed under direct visualization, these were hemostatic. The cuff remained hemostatic. I looked at it several times again prior to removing the scope and gas was released through that umbilical port and then it was removed as well. All 3 port sites were closed with 4-0 nylon at the skin and injected with local. The patient was awakened from anesthesia and brought to recovery room in stable condition. BOB SMITH: Venus TID: [id number]
[2021-01-04] MEDS ORDERED: FLU VACC QUAD 21-22 (6MOS+) PF 0.5 ML SYRINGE. VAX IM ONE (13:30)
[2021-01-04] MEDS: oxyCODONE/APAP 5/325 1 TAB TABLET PO PRN ×2 (16:32→22:45)
--- NOTE | 2021-01-04 19:10 | NUR ---
PT used bathroom call light for nurse. At arriving pt is sitting on toilet c/o right side chest pain that radiates to shoulder. Pt states she just got out of the shower and sat down and the pain started. Pt states pain is 10/10. PT VS are done while sitting on toilet. Pt reports no N/V,double vision, sweating, or pain anywhere else.
--- NOTE | 2021-01-04 19:15 | NUR ---
RN called Dr. Hitchcock to notify pt is having right side chest pain that radiates to shoulder and RN notifies Dr. Hitchcock that pt just got out of the shower. Dr. Hitchcock states pt shouldn't have taken a shower because it was too much activity. Dr. Hitchcock states she last called 2hrs ago and pt was fine and was even thinking about discharging her and pt stated she wanted to rest. RN recommends to do an EKG to Dr. Hitchcock. Dr. 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 RN notifies Dr. Hitchcock if pt c/o of chest pain again RN will be calling a rapid response. RN explains to Dr. Hitchcock that a rapid response is different then code blue. It will help RN with extra hands if pt is having chest pain.
--- NOTE | 2021-01-04 19:46 | NUR ---
Rapid response was initiated by RN due to pt stating that her chest pain on right side came back and it radiating to shoulder again. Nursing dehydrogenation supervisor, respiratory, and ICU nurse came to pt bedside.
--- NOTE | 2021-01-04 19:53 | NUR ---
Dr. Carter called to give orders that ER physician recommended. RN had Dr. carter stop talking to notify her that a rapid response was initiated due to pt condition. Dr. Carter states why I didn't call her first before initiating a rapid response. RN notified Dr. Carter that it's are hospital protocol to initiate rapid response. RN also notified Dr. Carter that other nurses were at a delivery and couldn't call her to tell her first. Dr. Carter wants hospitalist to take over care. nursing packing house supervisor and ICU nurse put new orders in. Dr. Cedillo was given report by nursing packing house supervisor. Pt will be transferred to room [address] Carter is aware and will consult Dr. Cedillo about pt chest pain.
--- NOTE | 2021-01-04 19:55 | NUR ---
around 1954 EKG was performed by respiratory. RN, nursing assembly department supervisor, and ICU nurse noted normal sinus rhythm. RN notified Dr. Hitchcock of results and Dr. Hitchcock states she wants a Doctor to sign and read the EKG. RN notifies Dr. Hitchcock that she will have to consult with ER physician, and that Dr. Cedillo might not be in the hospital at the moment to sign off on EKG. Dr. Hitchcock states that if Dr. Rowan trust and is fine with the nurses reading the EKG then it is up to him. 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
[2021-01-04 20:42] LABS: BASO % 0 % (0-3); EOS % 0 % (0-3); HEMATOCRIT 32.3 % (36.0-47.0); HEMOGLOBIN 10.8 g/dL (12.0-15.5); LYMPH # 0.5 x10^3/uL (1.0-4.8); LYMPH % 5 % (24-48); MEAN CORPUSCULAR HEMOGLOBIN 30 pg (25-35); MEAN CORPUSCULAR HGB CONC 34 g/dL (31-37); MEAN CORPUSCULAR VOLUME 88 fL (79-100); MONO # 0.8 x10^3/uL (0.0-1.1); MONO % 7 % (0-9); NEUT # 10.3 x10^3/uL (1.8-7.7); NEUT % 89 % (31-73); PLATELET COUNT 207 x10^3/uL (140-400); RED BLOOD COUNT 3.67 x10^6/uL (3.50-5.40); RED CELL DISTRIBUTION WIDTH 12.5 % (11.5-14.5); WHITE BLOOD COUNT 11.7 x10^3/uL (4.0-11.0)
--- NOTE | 2021-01-04 20:44 | NUR ---
PT VS are stabled, plan of care is reviewed with pt, and pt is aware of being transferred to room 648. RN helped pt onto wheelchair. Pt states she has no chest pain at this moment. PT and SO are transferred to room 648 in stable condition.
[2021-01-04] MEDS ORDERED: NITROGLYCERIN SUBLINGUAL 0.4 MG BOTTLE OF 25. SL PRN (21:00)
[2021-01-04] MEDS ORDERED: hydrALAZINE 20 MG/ML VIAL. IVP PRN (21:00)
[2021-01-04 21:15] LABS: % LYMPHS 2 % (24-48); % MONOS 5 % (0-10); % SEGS 93 % (35-66)
[2021-01-04 21:16] LABS: PLT ESTIMATE ADEQUATE (ADEQUATE)
--- NOTE | 2021-01-04 21:20 | RAD ---
EXAM: XR CHEST 1V 01/04/2021 8:15 PM CLINICAL INDICATION: Right-sided chest pain COMPARISON: Chest radiograph 09/10/2020 TECHNIQUE: AP upright view of the chest FINDINGS: The heart is normal in size. Lungs are well-expanded and clear. No consolidation, pleural effusion, or pneumothorax. There is a small amount of pneumoperitoneum under the right hemidiaphragm. No acute osseous abnormality. IMPRESSION: 1. No acute cardiopulmonary abnormality. 2. Pneumoperitoneum seen under the right hemidiaphragm, likely related to postoperative state. Findings discussed by Dr. Kothari with the patient's nurse at 9:18 PM on 01/04/2021. Electronically signed by: Eli Kothari MD (01/04/2021 9:18 PM) [facility]
[2021-01-05] MEDS: oxyCODONE/APAP 5/325 1 TAB TABLET PO PRN ×2 (03:28→09:24)
[2021-01-05 03:57] VITALS: BP 148/81
[2021-01-05 06:50] LABS: CALCIUM 8.7 mg/dL (8.5-10.1); CREATININE 1.3 mg/dL (0.6-1.0); GFR 56.7; POTASSIUM 3.8 mmol/L (3.5-5.1)
--- NOTE | 2021-01-05 09:41 | PDOC1 ---
History and Physical Date of Admission Date of Admission DATE: 01/05/21 TIME: 09:40 History of Present Illness History of Present Illness Ms. Hitchcock had a Lap Assisted Vaginal Hys yesterday with Dr. Hitchcock, pt was not anemic, but had 6 weeks of heavy bleeding, and not improved with Depo Shot and PO meds. PT reports weeks of copius blood loss, and Plan for Hys. pt has prior Tubal ligation surg. Surg report showed boggy uterus and adhesions noted. PT h Past Medical History Cardiovascular: No pertinent hx Pulmonary: No pertinent hx GI: No pertinent hx Heme/Onc: No pertinent hx Psych: No pertinent hx Rheumatologic: No pertinent hx Past Surgical History Past Surgical History: Tubal Ligation Family History Family History: No Significant Social History ALCOHOL: none Drugs: None Current Medications Current Medications Current Medications Fentanyl Citrate (Fentanyl 2ml Vial) 25 mcg PRN Q5MIN PRN IVP MILD PAIN 1-3; Start 01/04/21 at 06:00; Stop 01/04/21 at 20:00; Status DC Fentanyl Citrate (Fentanyl 2ml Vial) 50 mcg PRN Q5MIN PRN IVP MODERATE PAIN 4- 6; Start 01/04/21 at 06:00; Stop 01/04/21 at 20:00; Status DC Morphine Sulfate (Morphine Sulfate) 1 mg PRN Q10MIN PRN IVP SEVERE PAIN 7-10 Last administered on 01/04/21at 10:36; Start 01/04/21 at 06:00; Stop 01/04/21 at 20:00; Status DC Ringer's Solution 1,000 ml @ 30 mls/hr Q24H IV Last administered on 01/04/21at 10:01; Start 01/04/21 at 06:00; Stop 01/04/21 at 17:59; Status DC Hydromorphone HCl (Dilaudid) 0.5 mg PRN Q10MIN PRN IVP SEVERE PAIN 7-10, 2nd CHOICE; Start 01/04/21 at 06:00; Stop 01/04/21 at 20:00; Status DC Prochlorperazine Edisylate (Compazine) 5 mg PACU PRN PRN IVP NAUSEA, MRX1; Start 01/04/21 at 06:00; Stop 01/04/21 at 20:00; Status DC Cefazolin Sodium (Ancef) 1 gm 1X PREOP PRN IVP PRIOR TO PROCEDURE Last administered on 01/04/21at 07:41; Start 01/04/21 at 06:00 Estrogens Conjugated (Premarin) 30 hilaria STK-MED ONCE .ROUTE ; Start 01/04/21 at 07:11; Stop 01/04/21 at 07:11; Status DC Bupivacaine HCl/ Epinephrine Bitart (Sensorcaine-Epi 0.25%-1:188736 Mpf) 30 ml STK-MED ONCE .ROUTE Last administered on 01/04/21at 08:11; Start 01/04/21 at 0 7:11; Stop 01/04/21 at 07:11; Status DC Indigotindisulfonate Sodium (Indigo [place]) 40 mg STK-MED ONCE .ROUTE ; Start 01/04/21 at 07:11; Stop 01/04/21 at 07:11; Status DC Midazolam HCl (Versed) 2 mg STK-MED ONCE .ROUTE ; Start 01/04/21 at 07:16; St op 01/04/21 at 07:16; Status DC Fentanyl Citrate (Fentanyl 2ml Vial) 100 mcg STK-MED ONCE .ROUTE ; Start 01/04/21 at 07:16; Stop 01/04/21 at 07:16; Status DC Rocuronium [place] (Zemuron) 50 mg STK-MED ONCE .ROUTE ; Start 01/04/21 at 07:16; Stop 01/04/21 at 07:16; Status DC Propofol (Diprivan) 200 mg STK-MED ONCE IV ; Start 01/04/21 at 07:16; Stop 01/04/21 at 07:16; Status DC Lidocaine HCl (Lidocaine Pf 2% Vial) 5 ml STK-MED ONCE .ROUTE ; Start 01/04/21 at 07:16; Stop 01/04/21 at 07:16; Status DC Ondansetron HCl (Zofran) 4 mg STK-MED ONCE .ROUTE ; Start 01/04/21 at 07:16; Stop 01/04/21 at 07:16; Status DC Dexamethasone Sodium Phosphate (Decadron) 4 mg STK-MED ONCE .ROUTE ; Start 01/04/21 at 07:16; Stop 01/04/21 at 07:16; Status DC Glycopyrrolate (Robinul) 1 mg STK-MED ONCE .ROUTE ; Start 01/04/21 at 08:01; Stop 01/04/21 at 08:01; Status DC Glycopyrrolate (Robinul) 1 mg STK-MED ONCE .ROUTE ; Start 01/04/21 at 08:01; Stop 01/04/21 at 08:02; Status DC Neostigmine [place] (Neostigmine Methylsulfate) 5 mg STK-MED ONCE .ROUTE ; Start 01/04/21 at 08:06; Stop 01/04/21 at 08:06; Status DC Fentanyl Citrate (Fentanyl 2ml Vial) 100 mcg STK-MED ONCE .ROUTE ; Start 01/04/21 at 08:11; Stop 01/04/21 at 08:12; Status DC Ephedrine Sulfate (ePHEDrine PF IN SALINE SYRINGE) 50 mg STK-MED ONCE IV ; Start 01/04/21 at 08:14; Stop 01/04/21 at 08:14; Status DC Hydromorphone HCl (Dilaudid) 2 mg STK-MED ONCE .ROUTE ; Start 01/04/21 at 08:22; Stop 01/04/21 at 08:23; Status DC Sevoflurane (Ultane) 90 ml STK-MED ONCE IH ; Start 01/04/21 at 08:30; Stop 01/04/21 at 08:30; Status DC Cefazolin Sodium (Ancef) 1 gm STK-MED ONCE IVP ; Start 01/04/21 at 08:58; Stop 01/04/21 at 08:58; Status DC Ketorolac Tromethamine (Toradol 30mg Vial) 30 mg STK-MED ONCE .ROUTE ; Start 01/04/21 at 09:41; Stop 01/04/21 at 09:41; Status DC Al Hydroxide/Mg Hydroxide (Mylanta Plus Xs) 30 ml PRN Q3HRS PRN PO DYSPEPSIA; Start 01/04/21 at 09:45 Calcium Carbonate/ Glycine (Tums) 500 mg PRN Q3HRS PRN PO INDIGESTION; Start 01/04/21 at 09:45 Simethicone (Gas-X) 80 mg PRN AFTMEALHC PRN PO GAS / BLOATING; Start 01/04/21 at 09:45 Diphenhydramine HCl (Benadryl) 25 mg PRN Q6HRS PRN PO ITCHING; Start 01/04/21 at 09:45 Diphenhydramine HCl (Benadryl) 25 mg PRN Q6HRS PRN IV ITCHING; Start 01/04/21 at 09:45 Zolpidem Tartrate (Ambien) 5 mg PRN QHS PRN PO INSOMNIA; Start 01/04/21 at 09:45 Naloxone HCl (Narcan) 0.1 mg PRN Q2MIN PRN IV SEE ADMIN INSTRUCTIONS; Start 01/04/21 at 09:45 Sodium Chloride (Normal Saline Flush) 3 ml QSHIFT PRN IV AFTER MEDS AND BLOOD DRAWS; Start 01/04/21 at 09:45 Potassium Chloride/Sodium Chloride 1,000 ml @ 125 mls/hr Q8H IV ; Start 01/04/21 at 11:00 Morphine Sulfate (Morphine Sulfate) 2 mg PRN Q1HR PRN IV PAIN; Start 01/04/21 at 09:45; Stop 01/04/21 at 20:54; Status DC Oxycodone/ Acetaminophen (Percocet 5/325) 2 tab PRN Q4HRS PRN PO SEVERE PAIN Last administered on 01/05/21at 09:24; Start 01/04/21 at 09:45 Acetaminophen/ Hydrocodone Bitart (Lortab 5/325) 2 tab PRN Q4HRS PRN PO MODERATE PAIN; Start 01/04/21 at 09:45 Magnesium Hydroxide (Milk Of Magnesia) 2,400 mg PRN Q12HR PRN PO CONSTIPATION; Start 01/04/21 at 09:45 Lactulose (Lactulose) 20 gm PRN Q12HR PRN PO CONSTIPATION; Start 01/04/21 at 09:45 Ondansetron HCl (Zofran) 4 mg PRN Q6HRS PRN IV NAUESA, 1ST CHOICE; Start 01/04/21 at 09:45 Ibuprofen (Motrin) 600 mg PRN Q6HRS PRN PO INFLAMMATION; Start 01/04/21 at 09:45 Influenza Virus Vaccine Quadrival (Flulaval Quad [id number] Syringe) 0.5 ml ONCE ONCE VAX IM ; Start 01/04/21 at 13:30; Stop 01/04/21 at 13:31; Status DC Morphine Sulfate (Morphine Sulfate) 4 mg PRN Q2HR PRN IV CHEST PAIN; Start 01/04/21 at 21:00 Nitroglycerin (Nitrostat) 0.4 mg PRN Q5MIN PRN SL CHEST PAIN; Start 01/04/21 at 21:00 Hydralazine HCl (Apresoline Inj) 10 mg PRN Q4HRS PRN IVP ELEVATED BP, SEE COMMENTS; Start 01/04/21 at 21:00 Active Scripts Active Allergies Allergies: Coded Allergies: No Known Drug Allergies (Unverified , 01/04/21) ROS General: No: Chills, Night Sweats, Fatigue, Malaise, Appetite, Other PSYCHOLOGICAL ROS: No: Anxiety, Behavioral Disorder, Concentration difficultie, Decreased libido, Depression, Disorientation, Hallucinations, Hostility, Irritablity, Memory difficulties, Mood Swings, Obsessive thoughts, Physical abuse, Sexual abuse, Sleep disturbances, Suicidal ideation, Other Eyes: No Blurry vision, No Decreased vision, No Double vision, No Dry eyes, No Excessive tearing, No Eye Pain, No Itchy Eyes, No Loss of vision, No Photophobia, No Scotomata, No Uses contacts, No Uses glasses, No Other HEENT: No: Heacaches, Visual Changes, Hearing change, Nasal congestion, Nasal discharge, Oral lesions, Sinus pain, Sore Throat, Epistaxis, Sneezing, Snoring, Tinnitus, Vertigo, Vocal changes, Other Hematological and Lymphatic: YES: Bleeding Problems ENDOCRINE: No: Breast Changes, Galactorrhea, Hair Pattern Changes, Hot Flashes, Malaise/lethargy, Mood Swings, Palpitations, Polydipsia/polyuria, Skin Changes, Temperature Intolerance, Unexpected Weight Changes, Other Respiratory: No: Cough, Hemoptysis, Orthopnea, Pleuritic Pain, Shortness of breath, SOB with excertion, Sputum Changes, Stridor, Tachypnea, Wheezing, Other Cardiovascular: yes Chest Pain Gastrointestinal: No Nausea, No Vomiting, No Abdominal Pain, No Diarrhea, No Constipation, No Melena, No Hematochezia, No Other Genitourinary: YES Other (bleeding); No Dysuria, No Frequency, No Incontinence, No Hematuria, No Retention, No Discharge, No , No , No , No , No , No , No Musculoskeletal: No Gait Disturbance, No Joint Pain, No Joint Stiffness, No Joint Swelling, No Muscle Pain, No Muscular Weakness, No Pain In:, No Swelling In:, No Other Neurological: No Behavorial Changes, No Bowel/Bladder ControlChng, No C onfusion, No Dizziness, No Gait Disturbance, No Headaches, No Impaired Coord/balance, No Memory Loss, No Numbness/Tingling, No Seizures, No Speech Problems, No Tremors, No Visual Changes, No Weakness, No Other Skin: Yes Dry Skin; No Eczema, No Hair Changes, No Lumps, No Mole Changes, No Mottling, No Nail Changes, No Pruritus, No Rash, No Skin Lesion Changes, No Other, No Acne Physical Exam Physical Exam pain 05/18 General: Alert, Oriented X3, Cooperative, No acute distress HEENT: Atraumatic, PERRLA Lungs: Clear to auscultation, Normal air movement, Other (no egophony) Heart: S1S2, RRR, no murmurs Abdomen: Normal bowel sounds, Other (tender, 3 small incision sites) Extremities: No cyanosis, No edema Skin: No rashes, No significant lesion Neuro: Normal speech, Normal tone Psych/Mental Status: Mental status NL, Mood NL Vitals Vitals Vital Signs Date Time Temp Pulse Resp B/P (MAP) Pulse Ox O2 Delivery O2 Flow Rate FiO2 01/05/21 08:00 Room Air 01/05/21 03:58 99 01/05/21 03:57 98.6 96 16 148/81 (103) 98.6 01/04/21 10:24 10 Labs Labs Laboratory Tests Test 01/04/21 06:22 01/04/21 20:35 01/05/21 00:00 01/05/21 05:40 Bedside Urine HCG, Qualitative Hcg negative (Negative) White Blood Count 11.7 x10^3/uL (4.0-11.0) Red Blood Count 3.67 x10^6/uL (3.50-5.40) Hemoglobin 10.8 g/dL (12.0-15.5) Hematocrit 32.3 % (36.0-47.0) 32.1 % (36.0-47.0) Mean Corpuscular Volume 88 fL (79-100) Mean Corpuscular Hemoglobin 30 pg (25-35) Mean Corpuscular Hemoglobin Concent 34 g/dL (31-37) Red Cell Distribution Width 12.5 % (11.5-14.5) Platelet Count 207 x10^3/uL (140-400) Neutrophils (%) (Auto) 89 % (31-73) Lymphocytes (%) (Auto) 5 % (24-48) Monocytes (%) (Auto) 7 % (0-9) Eosinophils (%) (Auto) 0 % (0-3) Basophils (%) (Auto) 0 % (0-3) Neutrophils # (Auto) 10.3 x10^3/uL (1.8-7.7) Lymphocytes # (Auto) 0.5 x10^3/uL (1.0-4.8) Monocytes # (Auto) 0.8 x10^3/uL (0.0-1.1) Eosinophils # (Auto) 0.0 x10^3/uL (0.0-0.7) Basophils # (Auto) 0.0 x10^3/uL (0.0-0.2) Segmented Neutrophils % 93 % (35-66) Lymphocytes % 2 % (24-48) Monocytes % 5 % (0-10) Platelet Estimate Adequate (ADEQUATE) Troponin I Quantitative < 0.017 ng/mL (0.000-0.055) < 0.017 ng/mL (0.000-0.055) < 0.017 ng/mL (0.000-0.055) Sodium Level 137 mmol/L (136-145) Potassium Level 3.8 mmol/L (3.5-5.1) Chloride Level 103 mmol/L (98-107) Carbon Dioxide Level 24 mmol/L (21-32) Anion Gap 10 (6-14) Blood Urea Nitrogen 14 mg/dL (7-20) Creatinine 1.3 mg/dL (0.6-1.0) Estimated GFR (Cockcroft-Gault) 56.7 Glucose Level 115 mg/dL (70-99) Calcium Level 8.7 mg/dL (8.5-10.1) Laboratory Tests Test 01/04/21 20:35 01/05/21 00:00 01/05/21 05:40 White Blood Count 11.7 x10^3/uL (4.0-11.0) Red Blood Count 3.67 x10^6/uL (3.50-5.40) Hemoglobin 10.8 g/dL (12.0-15.5) Hematocrit 32.3 % (36.0-47.0) 32.1 % (36.0-47.0) Mean Corpuscular Volume 88 fL (79-100) Mean Corpuscular Hemoglobin 30 pg (25-35) Mean Corpuscular Hemoglobin Concent 34 g/dL (31-37) Red Cell Distribution Width 12.5 % (11.5-14.5) Platelet Count 207 x10^3/uL (140-400) Neutrophils (%) (Auto) 89 % (31-73) Lymphocytes (%) (Auto) 5 % (24-48) Monocytes (%) (Auto) 7 % (0-9) Eosinophils (%) (Auto) 0 % (0-3) Basophils (%) (Auto) 0 % (0-3) Neutrophils # (Auto) 10.3 x10^3/uL (1.8-7.7) Lymphocytes # (Auto) 0.5 x10^3/uL (1.0-4.8) Monocytes # (Auto) 0.8 x10^3/uL (0.0-1.1) Eosinophils # (Auto) 0.0 x10^3/uL (0.0-0.7) Basophils # (Auto) 0.0 x10^3/uL (0.0-0.2) Segmented Neutrophils % 93 % (35-66) Lymphocytes % 2 % (24-48) Monocytes % 5 % (0-10) Platelet Estimate Adequate (ADEQUATE) Troponin I Quantitative < 0.017 ng/mL (0.000-0.055) < 0.017 ng/mL (0.000-0.055) < 0.017 ng/mL (0.000-0.055) Sodium Level 137 mmol/L (136-145) Potassium Level 3.8 mmol/L (3.5-5.1) Chloride Level 103 mmol/L (98-107) Carbon Dioxide Level 24 mmol/L (21-32) Anion Gap 10 (6-14) Blood Urea Nitrogen 14 mg/dL (7-20) Creatinine 1.3 mg/dL (0.6-1.0) Estimated GFR (Cockcroft-Gault) 56.7 Glucose Level 115 mg/dL (70-99) Calcium Level 8.7 mg/dL (8.5-10.1) Images Images Pneumoperitoneum seen under the right hemidiaphragm, likely related to postoperative state. VTE Prophylaxis Ordered VTE Prophylaxis Devices: No VTE Pharmacological Prophylaxi: No Assessment/Plan Assessment/Plan was obs for acute blood loss, to OR for Menorrhagia, dysmenorrhea, fibroid disease, acute chest pain after Laproscopic surgery CHEST XRAY showed Pneumoperitoneum seen under the right hemidiaphragm, troponin neg, CXR no other problem. EKG normal, tele stable she has pain meds, will follow up with Dr. Marcelo, primary care I am OK with YELENA AMBRIZ MD Jan 05, 2021 09:41
--- NOTE | 2021-01-05 10:14 | CARD ---
MR#: [id number] Date of Study: 01/05/2021 Ordering Physician: EFREN FOLEY, Referring Physician: EFREN FOLEY, Tech: Juanis Rae DIDIER APPROVED REPORT EXAM: Two-dimensional and M-mode echocardiogram with Doppler and color Doppler. Other Information Quality : AverageHR: 74bpm INDICATION Chest Pain 2D DIMENSIONS RVDd3.5 (2.9-3.5cm)Left Atrium(2D)3.2 (1.6-4.0cm) IVSd0.8 (0.7-1.1cm)Aortic Root(2D)2.7 (2.0-3.7cm) LVDd4.6 (3.9-5.9cm)LVOT Diameter2.1 (1.8-2.4cm) PWd1.0 (0.7-1.1cm)LVDs2.9 (2.5-4.0cm) FS (%) 37.3 %SV64.4 ml LVEF(%)67.3 (>50%) Aortic Valve AoV Peak Scott.146.7cm/sAoV VTI26.9cm AO Peak GR.8.6mmHgLVOT Peak Scott.100.2cm/s LVOT VTI 19.54cmAO Mean GR.4mmHg RONDA (VMAX)1.41ju7SXG (VTI)2.42cm2 Mitral Valve MV E Fkwgdsfi324.1cm/sMV DECEL EQEN175vk MV A Dtmyctwo84.5cm/sMV E Mean Gr.4mmHg MV TDB96aaX/A Ratio1.6 MVA (PHT)3.90cm2 TDI E/Lateral E'8.5E/Medial E'9.9 Pulmonary Valve PV Peak Rfhlrmxe34.9cm/sPV Peak Grad.3mmHg Tricuspid Valve TR P. Exupktom701qr/sRAP KTFQHYNY7ixLw TR Peak Gr.55tcWgVMOI83jeRj Pulmonary Vein S1 Diibobww50.8cm/sD2 Ecygqzax95.8cm/s PVa [id number] LEFT VENTRICLE The left ventricle is normal size. There is normal left ventricular wall thickness. The left ventricu lar systolic function is normal and the ejection fraction is within normal range. The Ejection Fracti on is 50-55%. There is normal LV segmental wall motion. The left ventricular diastolic function and f illing is normal for age. RIGHT VENTRICLE The right ventricle is normal size. There is normal right ventricular wall thickness. The right ventr icular systolic function is normal. ATRIA The left atrium size is normal. The right atrium size is normal. The interatrial septum is intact wit h no evidence for an atrial septal defect or patent foramen ovale as noted on 2-D or Doppler imaging. AORTIC VALVE The aortic valve is normal in structure and function. Doppler and Color Flow revealed trace aortic re gurgitation. Calculated aortic valve area is 2.31 cm2 with maximum pressure gradient of 9 mmHg and me an pressure gradient of 5 mmHg. There is no significant aortic valvular stenosis. MITRAL VALVE The mitral valve is normal in structure and function. There is no evidence of mitral valve prolapse. There is no mitral valve stenosis. Doppler and Color-flow revealed trace mitral regurgitation. TRICUSPID VALVE The tricuspid valve is normal in structure and function. Doppler and Color Flow revealed trace tricus pid regurgitation with an estimated PAP of 33 mmHg. There is no tricuspid valve stenosis. PULMONIC VALVE Doppler and Color Flow revealed trace to mild pulmonic valvular regurgitation. There is no pulmonic v alvular stenosis. GREAT VESSELS The aortic root is normal in size. The ascending aorta is normal in size. The IVC is normal in size a nd collapses >50% with inspiration. PERICARDIAL EFFUSION There is no evidence of significant pericardial effusion. Critical Notification Critical Value: No <Conclusion> The left ventricular systolic function is normal and the ejection fraction is within normal range. Th e Ejection Fraction is 50-55%. There is normal LV segmental wall motion. Signed by : Yefri Tai, Electronically Approved : 01/05/2021 10:13:40
--- NOTE | 2021-01-05 11:08 | NUR ---
SS following for discharge planning. SS reviewed pt chart and discussed with pt RN. Pt is from home with spouse and is currently on room air. Pt had hysterectomy on 01/04/2021. Discharge plan is currently to home when medically ready for discharge. SS will continue to follow for discharge planning.
--- NOTE | 2021-01-05 11:45 | PDOC ---
SURGICAL PROGRESS NOTE DATE: 01/05/21 TIME: 11:39 Subjective up in bed upon exam feeling good and wanting to go home. No n/v tolerating regular diet , chest pain completely resolved, voiding without catheter, +flatus, scant vb, ambulating well and already showered last night Vital Signs Vital Signs Date Time Temp Pulse Resp B/P (MAP) Pulse Ox O2 Delivery O2 Flow Rate FiO2 01/05/21 08:00 Room Air 01/05/21 03:58 99 01/05/21 03:57 98.6 96 16 148/81 (103) 98.6 01/04/21 10:24 10 I&O Intake and Output 01/05/21 07:00 Intake Total 2040 ml Output Total 650 ml Balance 1390 ml Intake Oral 640 ml IV Total 1400 ml Output Urine Total 600 ml Estimated Blood Loss 50 ml # Voids 10 PATIENT HAS A LÓPEZ: No General: Alert, Oriented X3, Cooperative, No acute distress HEENT: Atraumatic Heart: Regular rate Abdomen: Soft, Other (all port sites c/d/i and appropriate discomfort with palpation) Extremities: No clubbing, No cyanosis, No edema, No tenderness/swelling, Other (neg homans bilaterally) Skin: No rashes, No breakdown Neuro: Normal speech Psych/Mental Status: Mental status NL, Mood NL Labs Laboratory Tests Test 01/04/21 06:22 01/04/21 20:35 01/05/21 00:00 01/05/21 05:40 Bedside Urine HCG, Qualitative Hcg negative (Negative) White Blood Count 11.7 x10^3/uL (4.0-11.0) Red Blood Count 3.67 x10^6/uL (3.50-5.40) Hemoglobin 10.8 g/dL (12.0-15.5) Hematocrit 32.3 % (36.0-47.0) 32.1 % (36.0-47.0) Mean Corpuscular Volume 88 fL (79-100) Mean Corpuscular Hemoglobin 30 pg (25-35) Mean Corpuscular Hemoglobin Concent 34 g/dL (31-37) Red Cell Distribution Width 12.5 % (11.5-14.5) Platelet Count 207 x10^3/uL (140-400) Neutrophils (%) (Auto) 89 % (31-73) Lymphocytes (%) (Auto) 5 % (24-48) Monocytes (%) (Auto) 7 % (0-9) Eosinophils (%) (Auto) 0 % (0-3) Basophils (%) (Auto) 0 % (0-3) Neutrophils # (Auto) 10.3 x10^3/uL (1.8-7.7) Lymphocytes # (Auto) 0.5 x10^3/uL (1.0-4.8) Monocytes # (Auto) 0.8 x10^3/uL (0.0-1.1) Eosinophils # (Auto) 0.0 x10^3/uL (0.0-0.7) Basophils # (Auto) 0.0 x10^3/uL (0.0-0.2) Segmented Neutrophils % 93 % (35-66) Lymphocytes % 2 % (24-48) Monocytes % 5 % (0-10) Platelet Estimate Adequate (ADEQUATE) Troponin I Quantitative < 0.017 ng/mL (0.000-0.055) < 0.017 ng/mL (0.000-0.055) < 0.017 ng/mL (0.000-0.055) Sodium Level 137 mmol/L (136-145) Potassium Level 3.8 mmol/L (3.5-5.1) Chloride Level 103 mmol/L (98-107) Carbon Dioxide Level 24 mmol/L (21-32) Anion Gap 10 (6-14) Blood Urea Nitrogen 14 mg/dL (7-20) Creatinine 1.3 mg/dL (0.6-1.0) Estimated GFR (Cockcroft-Gault) 56.7 Glucose Level 115 mg/dL (70-99) Calcium Level 8.7 mg/dL (8.5-10.1) Laboratory Tests Test 01/04/21 20:35 01/05/21 00:00 01/05/21 05:40 White Blood Count 11.7 x10^3/uL (4.0-11.0) Red Blood Count 3.67 x10^6/uL (3.50-5.40) Hemoglobin 10.8 g/dL (12.0-15.5) Hematocrit 32.3 % (36.0-47.0) 32.1 % (36.0-47.0) Mean Corpuscular Volume 88 fL (79-100) Mean Corpuscular Hemoglobin 30 pg (25-35) Mean Corpuscular Hemoglobin Concent 34 g/dL (31-37) Red Cell Distribution Width 12.5 % (11.5-14.5) Platelet Count 207 x10^3/uL (140-400) Neutrophils (%) (Auto) 89 % (31-73) Lymphocytes (%) (Auto) 5 % (24-48) Monocytes (%) (Auto) 7 % (0-9) Eosinophils (%) (Auto) 0 % (0-3) Basophils (%) (Auto) 0 % (0-3) Neutrophils # (Auto) 10.3 x10^3/uL (1.8-7.7) Lymphocytes # (Auto) 0.5 x10^3/uL (1.0-4.8) Monocytes # (Auto) 0.8 x10^3/uL (0.0-1.1) Eosinophils # (Auto) 0.0 x10^3/uL (0.0-0.7) Basophils # (Auto) 0.0 x10^3/uL (0.0-0.2) Segmented Neutrophils % 93 % (35-66) Lymphocytes % 2 % (24-48) Monocytes % 5 % (0-10) Platelet Estimate Adequate (ADEQUATE) Troponin I Quantitative < 0.017 ng/mL (0.000-0.055) < 0.017 ng/mL (0.000-0.055) < 0.017 ng/mL (0.000-0.055) Sodium Level 137 mmol/L (136-145) Potassium Level 3.8 mmol/L (3.5-5.1) Chloride Level 103 mmol/L (98-107) Carbon Dioxide Level 24 mmol/L (21-32) Anion Gap 10 (6-14) Blood Urea Nitrogen 14 mg/dL (7-20) Creatinine 1.3 mg/dL (0.6-1.0) Estimated GFR (Cockcroft-Gault) 56.7 Glucose Level 115 mg/dL (70-99) Calcium Level 8.7 mg/dL (8.5-10.1) I have reviewed the following labs, vitals, nursing, consult notes, echo, CXR,, etc Cardiovascular: No pertinent hx Pulmonary: No pertinent hx GI: No pertinent hx Heme/Onc: Anemia NOS Assessment/Plan POD#1 s/p LAVH/bilateral salpingectomy/lysis of adhesions up to shower last night and develoiped upper right sided chest pain last night nurse initiated rapid response when EKG was done and recommended transfer to 6 to be monitored CXR and troponin x 3 all negative HIMs consulted and they evaluated her and echo also negative and they are ok with discharge all pain resolved pt aware BPs have been running slightly up and will follow up with Dr. Marcelo as outpatient also as recommended by HIMs doctor also NPV x 6 weeks light/limited activity x 2 weeks keep scheduled follow up with us in one week already has narcotic pain meds at home ok for OTC ibuprofen as well, prn NO driving on narcotic pain meds and x 1 week at least call or return sooner for any other questions or concerns not limited to but including pain unrelieved with pain meds, increased or unexplained vb or T>100.4 Justicifation of Admission Dx: Justifications for Admission: Justification of Admission Dx: Yes ALEJANDRO HAYES MD Jan 05, 2021 11:45
--- NOTE | 2021-01-05 11:49 | PDOC3 ---
Discharge Summary Visit Information Date of Admission: Jan 04, 2021 Date of Discharge: Jan 05, 2021 Admitting Diagnosis Comment: menorrhagia, enlarged fibroid uterus Final Diagnosis same Brief Hospital Course Allergies Allergies Coded Allergies Type Severity Reaction Last Updated Verified No Known Drug Allergies 01/04/21 No Vital Signs Vital Signs Date Time Temp Pulse Resp B/P (MAP) Pulse Ox O2 Delivery O2 Flow Rate FiO2 01/05/21 08:00 Room Air 01/05/21 03:58 99 01/05/21 03:57 98.6 96 16 148/81 (103) 98.6 01/04/21 10:24 10 Lab Results Laboratory Tests Test 01/04/21 06:22 01/04/21 20:35 01/05/21 00:00 01/05/21 05:40 Bedside Urine HCG, Qualitative Hcg negative (Negative) White Blood Count 11.7 x10^3/uL (4.0-11.0) Red Blood Count 3.67 x10^6/uL (3.50-5.40) Hemoglobin 10.8 g/dL (12.0-15.5) Hematocrit 32.3 % (36.0-47.0) 32.1 % (36.0-47.0) Mean Corpuscular Volume 88 fL (79-100) Mean Corpuscular Hemoglobin 30 pg (25-35) Mean Corpuscular Hemoglobin Concent 34 g/dL (31-37) Red Cell Distribution Width 12.5 % (11.5-14.5) Platelet Count 207 x10^3/uL (140-400) Neutrophils (%) (Auto) 89 % (31-73) Lymphocytes (%) (Auto) 5 % (24-48) Monocytes (%) (Auto) 7 % (0-9) Eosinophils (%) (Auto) 0 % (0-3) Basophils (%) (Auto) 0 % (0-3) Neutrophils # (Auto) 10.3 x10^3/uL (1.8-7.7) Lymphocytes # (Auto) 0.5 x10^3/uL (1.0-4.8) Monocytes # (Auto) 0.8 x10^3/uL (0.0-1.1) Eosinophils # (Auto) 0.0 x10^3/uL (0.0-0.7) Basophils # (Auto) 0.0 x10^3/uL (0.0-0.2) Segmented Neutrophils % 93 % (35-66) Lymphocytes % 2 % (24-48) Monocytes % 5 % (0-10) Platelet Estimate Adequate (ADEQUATE) Troponin I Quantitative < 0.017 ng/mL (0.000-0.055) < 0.017 ng/mL (0.000-0.055) < 0.017 ng/mL (0.000-0.055) Sodium Level 137 mmol/L (136-145) Potassium Level 3.8 mmol/L (3.5-5.1) Chloride Level 103 mmol/L (98-107) Carbon Dioxide Level 24 mmol/L (21-32) Anion Gap 10 (6-14) Blood Urea Nitrogen 14 mg/dL (7-20) Creatinine 1.3 mg/dL (0.6-1.0) Estimated GFR (Cockcroft-Gault) 56.7 Glucose Level 115 mg/dL (70-99) Calcium Level 8.7 mg/dL (8.5-10.1) Laboratory Tests Test 01/04/21 20:35 01/05/21 00:00 01/05/21 05:40 White Blood Count 11.7 x10^3/uL (4.0-11.0) Red Blood Count 3.67 x10^6/uL (3.50-5.40) Hemoglobin 10.8 g/dL (12.0-15.5) Hematocrit 32.3 % (36.0-47.0) 32.1 % (36.0-47.0) Mean Corpuscular Volume 88 fL (79-100) Mean Corpuscular Hemoglobin 30 pg (25-35) Mean Corpuscular Hemoglobin Concent 34 g/dL (31-37) Red Cell Distribution Width 12.5 % (11.5-14.5) Platelet Count 207 x10^3/uL (140-400) Neutrophils (%) (Auto) 89 % (31-73) Lymphocytes (%) (Auto) 5 % (24-48) Monocytes (%) (Auto) 7 % (0-9) Eosinophils (%) (Auto) 0 % (0-3) Basophils (%) (Auto) 0 % (0-3) Neutrophils # (Auto) 10.3 x10^3/uL (1.8-7.7) Lymphocytes # (Auto) 0.5 x10^3/uL (1.0-4.8) Monocytes # (Auto) 0.8 x10^3/uL (0.0-1.1) Eosinophils # (Auto) 0.0 x10^3/uL (0.0-0.7) Basophils # (Auto) 0.0 x10^3/uL (0.0-0.2) Segmented Neutrophils % 93 % (35-66) Lymphocytes % 2 % (24-48) Monocytes % 5 % (0-10) Platelet Estimate Adequate (ADEQUATE) Troponin I Quantitative < 0.017 ng/mL (0.000-0.055) < 0.017 ng/mL (0.000-0.055) < 0.017 ng/mL (0.000-0.055) Sodium Level 137 mmol/L (136-145) Potassium Level 3.8 mmol/L (3.5-5.1) Chloride Level 103 mmol/L (98-107) Carbon Dioxide Level 24 mmol/L (21-32) Anion Gap 10 (6-14) Blood Urea Nitrogen 14 mg/dL (7-20) Creatinine 1.3 mg/dL (0.6-1.0) Estimated GFR (Cockcroft-Gault) 56.7 Glucose Level 115 mg/dL (70-99) Calcium Level 8.7 mg/dL (8.5-10.1) Brief Hospital Course Ms. Hayes is a 35 old female who presented with menorrhagia, enlarged fibroid uterus. She underwent LAVH, bilateral salpingectomy and lysis of adhesions yesterday without complication. Yesterday evening after dinner she was feeling good and got up to shower and when out developed a sharp right sided upper chest pain that went into shoulder. [facility] floor nurse initiated rapid response and EKG was done and recommended transfer to 6th floor to be monitored and consulted HIMs doctor. CXR and serial troponin all negative. They also did echo and was normal also. Chest pain resolved and they are ok with her being discharged. from surgical perspective voiding without catheter, scant VB, tolerating regular diet and wanting to go home. Assessment Assessment POD#1 s/p LAVH/bilateral salpingectomy/lysis of adhesions up to shower last night and develoiped upper right sided chest pain last night nurse initiated rapid response when EKG was done and recommended transfer to 6 to be monitored CXR and troponin x 3 all negative HIMs consulted and they evaluated her and echo also negative and they are ok with discharge all pain resolved pt aware BPs have been running slightly up and will follow up with Dr. Marcelo as outpatient also as [facility] also NPV x 6 weeks light/limited activity x 2 weeks keep scheduled follow up with us in one week already has narcotic pain meds at home ok for OTC ibuprofen as well, prn NO driving on narcotic pain meds and x 1 week at least call or return sooner for any other questions or concerns not limited to but including pain unrelieved with pain meds, increased or unexplained vb or T>100.4 Discharge Information Condition at Discharge: Stable Follow Up: Weeks Disposition/Orders: D/C to Home Patient Instructions Patient Instructions POD#1 s/p LAVH/bilateral salpingectomy/lysis of adhesions up to shower last night and develoiped upper right sided chest pain last night nurse initiated rapid response when EKG was done and recommended transfer to 6 to be monitored CXR and troponin x 3 all negative HIMs consulted and they evaluated her and echo also negative and they are ok with discharge all pain resolved pt aware BPs have been running slightly up and will follow up with Dr. Marcelo as outpatient also as [facility] also NPV x 6 weeks light/limited activity x 2 weeks keep scheduled follow up with us in one week already has narcotic pain meds at home ok for OTC ibuprofen as well, prn NO driving on narcotic pain meds and x 1 week at least call or return sooner for any other questions or concerns not limited to but including pain unrelieved with pain meds, increased or unexplained vb or T>100.4 Justicifation of Admission Dx: Justifications for Admission: Justification of Admission Dx: Yes ALEJANDRO HAYES MD Jan 05, 2021 11:49
--- NOTE | 2021-01-05 12:20 | NUR ---
Discharge Note: GISELA HAYES [address] Discharge instructions and discharge home medications reviewed with Patient and a copy given. All questions have been answered and understanding verbalized. The following instructions and handouts were given: information about activity, diet, follow up, medications, incision care. Discontinued lines and drains: IV line in left hand was removed by patient before RN could remove. Patient discharged to home with self care with , wheelchair used for mobility to discharge vehicle.
[2021-01-05 23:23] LABS: HEMOGLOBIN A1C 5.1 % (4.8-5.6)
--- NOTE | 2021-01-06 18:22 | PATHOLOGY ---
[facility] Accession Number: [id number] . 01 Material submitted: . uterus - UTERUS, CERVIX, BILATERAL TUBES . 01 Clinical history: . MENORRHAGIA, DYSMENORRHEA, FIBROIDS LAVH, BILATERAL SALPINGECTOMY . 02 Diagnosis: Uterus and detached bilateral fallopian tubes, laparoscopic assisted vaginal hysterectomy with bilateral salpingectomy: - Leiomyomas, uterine corpus, submucosal, the largest measuring 3.2 cm in greatest dimension (uterine weight 130 grams). - Mild chronic cervicitis with focal squamous metaplasia. - Cystic endometriosis of endocervix, focal. - Inactive/weakly proliferative endometrium with focal stromal decidualization. - Adenomyosis, uterine corpus, subbasal, focal. - Congestion of bilateral fallopian tubes. (JPM:humberto; 01/06/2021) [facility] 01/06/2021 1610 Local . 02 Comment: There is no atypia or evidence of malignancy. (JPM:humberto; 01/06/2021) . 02 Electronically signed: . Kaushal Clay MD, Pathologist NPI- [id number] . 01 Gross description: . Fixative: Formalin Labeled: Uterus, cervix, bilateral tubes Specimen received: Uterus with attached cervix and detached bilateral fallopian tubes Uterus weight: 130 g Uterus: 10.5 x 5.9 x 5.2 cm Serosa: [place]-perez, smooth Ectocervix: [place]-hernández to pink-perez, smooth Cervical os: Patent, measuring 0.4 cm Endocervical canal: 3.6 cm Endometrial cavity: 5.3 x 1.9 cm Endometrium: Light hernández, smooth to granular Endometrial thickness: 0.1 cm Myometrium: Hernández-pink, trabeculated Myometrium thickness: Up to 2.4 cm Lesions/abnormalities: Two submucosal fibroids measuring 1.8 and 3.2 cm First fallopian tube: 1 g, fimbriated; 2.5 cm in length, 0.4 cm in diameter First fallopian tube cut surface: Pinpoint lumen Second fallopian tube: 2 g, fimbriated; 3.5 cm in length, 0.5 cm in diameter Second fallopian tube cut surface: Pinpoint to patent lumen . Fuse Maker sections are submitted as follows: A1 12:00 cervix A2 6:00 cervix A3 anterior endomyometrium A4 posterior endomyometrium A5 uniforms sales representative sections of fibroids A6 uniforms sales representative sections from first fallopian tube, to include fimbria A7 uniforms sales representative sections from second fallopian tube, to include fimbria (CAA; 01/05/2021) QAC/QAC 01/06/2021 1610 Local . 02 Pathologist provided ICD-10: D25.9, N72, N87.9, N80.0, N85.9 . 02 CPT . 244944 Specimen Comment: A courtesy copy of this report has been sent to [phone], [phone] Specimen Comment: [id number] Specimen Comment: Report sent to , DR MÉNDEZ / DR HAYES Specimen Comment: A duplicate report has been generated due to demographic updates. Performed at: 01 [facility] [address], [place] [id number] MD García Zabala MD Phone: [phone] Performed at: 02 [facility] [address] [place], [place] [id number] MD Kaushal Clay MD Phone: [phone]
== END 2021-01-05 12:15 | disposition home or self-care (01) ==
LOC: SURG 05:58 → 3 SO LND 09:58 → 6 SOUTH 21:09
PROVIDERS: ADMIT Obstetrics & Gynecology; ATTEND Obstetrics & Gynecology
DX: N92.0 Excessive and frequent menstruation with regular cycle (principal); Z20.822 Contact with and (suspected) exposure to COVID-19; N85.2 Hypertrophy of uterus; K66.8 Other specified disorders of peritoneum; N94.6 Dysmenorrhea, unspecified; D50.0 Iron deficiency anemia secondary to blood loss (chronic); D25.9 Leiomyoma of uterus, unspecified; N85.4 Malposition of uterus; N85.8 Other specified noninflammatory disorders of uterus; R07.89 Other chest pain; Z98.51 Tubal ligation status; Z79.899 Other long term (current) drug therapy
CPT/HCPCS: 36415; 58552; 71045; 80048; 81025; 83036; 84484; 85007; 85014; 85025; 86850; 86900; 86901; 93306; A4314; A4364; A4930; G0378; G0379; J0690; J1100; J1170; J1885; J2250; J2270; J2405; J2704; J2710; J3010; J3490; 88307; A4657